=== PATIENT | male | born 1980 | race Caucasian/White ===

== ENCOUNTER → 2019-08-15 | Outpatient (CLI) | payer BC ==
--- NOTE | 2019-08-19 08:29 | NUR ---
Attempted to reach patient Monday and Monday. Had old number. Reached patients work at [employer] today and they gave me his number [phone]. He has been quarantined waiting on results. is sick today. I educated them on getting her tested and quarantined and what to do with COVID at home and that the health dept would call him. He verbalized feeling better today and understanding quarantine. Dr Enamorado notified I reached the patient.
== END ==
LOC: LABNPT 08:56
PROVIDERS: ATTEND Emergency Medicine
DX: U07.1 COVID-19 (principal)
CPT/HCPCS: 87635